=== PATIENT | female | born 1945 | race American Indian/Alaskan Native ===

== ENCOUNTER 2022-05-17 12:15 | Emergency (ER) | payer MEDICARE ==
[2022-05-17] MEDS ORDERED: ASPIRIN 325 MG TAB PO ONE (12:28)
--- NOTE | 2022-05-17 13:21 | XRay Report ---
XR chest routine 2V INDICATION / CLINICAL INFORMATION: chest pain. COMPARISON: None available. FINDINGS: SUPPORT DEVICES: None. HEART /PULMONARY VASCULATURE: Sternotomy changes. Cardiac size is enlarged. No significant ulnar vasc ulature congestion. LUNGS / PLEURA: No significant pulmonary or pleural abnormality. No pneumothorax. ADDITIONAL FINDINGS: No significant additional findings. IMPRESSION: 1. No acute findings. Signer Name: Damian Rosales MD Signed: 05/17/2022 1:16 PM Workstation Name: [id number]
[2022-05-17 14:09] LABS: Basophils % (Auto) 0.6 % (0.0-1.8); Eosinophils # (Auto) 0.1 K/mm3 (0.0-0.4); Eosinophils % (Auto) 1.4 % (0.0-4.3); Hematocrit 37.4 % (30.3-42.9); Hemoglobin 11.8 gm/dl (10.1-14.3); Lymphocytes # (Auto) 2.6 K/mm3 (1.2-5.4); Lymphocytes % (Auto) 36.5 % (13.4-35.0); Mean Corpuscular HGB Conc 32 % (30-34); Mean Corpuscular Volume 77 fl (79-97); Monocytes # (Auto) 0.5 K/mm3 (0.0-0.8); Monocytes % (Auto) 6.8 % (0.0-7.3); Platelet Count 222 K/mm3 (140-440); Red Blood Count 4.87 M/mm3 (3.65-5.03)
--- NOTE | 2022-05-17 14:14 | Electrocardiograph Report ---
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
[2022-05-17 14:40] LABS: Alanine Aminotransferase 17 units/L (7-56); BUN/Creatinine Ratio 24; Blood Urea Nitrogen 22 mg/dL (7-17); Hemolysis Index 2
[2022-05-17] MEDS ORDERED: ALUM-MAG HYDROXIDE-SIMETHICONE 200-200-20MG/5ML ORAL LIQD 30 ML PO ONE (15:51)
--- NOTE | 2022-05-17 17:00 | Emergency Department Report ---
ED General Adult HPI - General Chief complaint: Chest Pain Stated complaint: CHEST PAIN/SOB PUI?: No Time Seen by Provider: 05/17/22 14:04 Source: patient Mode of arrival: Ambulatory Limitations: No Limitations - History of Present Illness Initial comments: 77-year-old obese female with multiple medical comorbidities including coronary artery disease, status post CABG (patient says she does not recall the year or date) presents for evaluation of chest pain. Patient reports 2 weeks of persistent daily burning left-sided chest pain. She states "it feels burning like his acid reflux." Pain does not radiate. It worsens with some p.o. intake. She is trying to take Gas-X at home but states it is not improved. No shortness of breath or difficulty breathing. No dizziness or lightheadedness no weakness. Pain currently 10 out of 10 Patient reports she was seen by her primary care doctor 1 day ago and she states "he did nothing for me." -: Gradual, week(s) (2) Radiation: non-radiation Severity scale (0 -10): 8 Quality: other Consistency: other Worsens with: eating Associated Symptoms: denies other symptoms Treatments Prior to Arrival: none - Related Data Home Medications Medication Instructions Recorded Confirmed Last Taken Aspirin EC 81 mg PO DAILY 04/01/16 05/17/22 1 Day Ago ~05/16/22 AtorvaSTATin 20 mg PO QHS 04/01/16 05/17/22 1 Day Ago ~05/16/22 Glimepiride 2 mg PO DAILY 04/01/16 05/17/22 1 Day Ago ~05/16/22 ISOSORBIDE MONOnitrate 60 mg PO DAILY 04/01/16 05/17/22 1 Day Ago ~05/16/22 Metformin HCl 500 mg PO BID 04/01/16 05/17/22 1 Day Ago ~05/16/22 Nitroglycerin [Nitrostat] 0.4 mg PO DAILY 04/01/16 05/17/22 1 Day Ago ~05/16/22 Triamterene/Hydrochlorothiazid 37.5 mg PO QAM 04/01/16 05/17/22 1 Day Ago [Triamterene-Hctz 37.5-25 mg Tb] ~05/16/22 Vitamin B12 5,000 mcg PO DAILY 04/01/16 05/17/22 1 Day Ago ~05/16/22 carvediloL NICU (1.67 MG/ML) 25 mg PO BID 04/01/16 05/17/22 1 Day Ago [Coreg NICU dilution] ~05/16/22 hydrALAZINE 100 mg PO TID 04/01/16 05/17/22 1 Day Ago ~05/16/22 lisinopriL [Lisinopril] 40 mg PO BID 04/01/16 05/17/22 1 Day Ago ~05/16/22 Torsemide [Soaanz] 20 mg PO 05/17/22 1 Day Ago ~05/16/22 paricalcitoL [Paricalcitol] 1 mcg PO 05/17/22 1 Day Ago ~05/16/22 Previous Rx's Medication Instructions Recorded Last Taken Type Famotidine [Acid Controller] 20 mg PO DAILY #30 05/17/22 Unknown Rx Mag Hydrox/Aluminum Hyd/Simeth 148 ml PO BID #500 ml 05/17/22 Unknown Rx [Maalox Advanced Suspension] Allergies Allergy/AdvReac Type Severity Reaction Status Date / Time No Known Allergies Allergy Unverified 04/01/16 07:24 ED Review of Systems ROS: Stated complaint: CHEST PAIN/SOB Other details as noted in HPI Comment: All other systems reviewed and negative Constitutional: no symptoms reported Eyes: as per HPI ENT: as per HPI Respiratory: no symptoms reported Cardiovascular: chest pain Endocrine: no symptoms reported Gastrointestinal: as per HPI Skin: as per HPI Neurological: as per HPI ED Past Medical Hx - Past Medical History Hx Hypertension: Yes Hx Congestive Heart Failure: Yes Hx Diabetes: Yes Hx GERD: Yes Hx Arthritis: Yes - Social History Smoking Status: Never Smoker Substance Use Type: None - Medications Home Medications: Home Medications Medication Instructions Recorded Confirmed Last Taken Type Aspirin EC 81 mg PO DAILY 04/01/16 05/17/22 1 Day Ago History ~05/16/22 AtorvaSTATin 20 mg PO QHS 04/01/16 05/17/22 1 Day Ago History ~05/16/22 Glimepiride 2 mg PO DAILY 04/01/16 05/17/22 1 Day Ago History ~05/16/22 ISOSORBIDE MONOnitrate 60 mg PO DAILY 04/01/16 05/17/22 1 Day Ago History ~05/16/22 Metformin HCl 500 mg PO BID 04/01/16 05/17/22 1 Day Ago History ~05/16/22 Nitroglycerin [Nitrostat] 0.4 mg PO DAILY 04/01/16 05/17/22 1 Day Ago History ~05/16/22 Triamterene/Hydrochlorothiazid 37.5 mg PO QAM 04/01/16 05/17/22 1 Day Ago History [Triamterene-Hctz 37.5-25 mg Tb] ~05/16/22 Vitamin B12 5,000 mcg PO DAILY 04/01/16 05/17/22 1 Day Ago History ~05/16/22 carvediloL NICU (1.67 MG/ML) 25 mg PO BID 04/01/16 05/17/22 1 Day Ago History [Coreg NICU dilution] ~05/16/22 hydrALAZINE 100 mg PO TID 04/01/16 05/17/22 1 Day Ago History ~05/16/22 lisinopriL [Lisinopril] 40 mg PO BID 04/01/16 05/17/22 1 Day Ago History ~05/16/22 Famotidine [Acid Controller] 20 mg PO DAILY #30 05/17/22 Unknown Rx Mag Hydrox/Aluminum Hyd/Simeth 148 ml PO BID #500 ml 05/17/22 Unknown Rx [Maalox Advanced Suspension] Torsemide [Soaanz] 20 mg PO 05/17/22 1 Day Ago History ~05/16/22 paricalcitoL [Paricalcitol] 1 mcg PO 05/17/22 1 Day Ago History ~05/16/22 ED Physical Exam - General Limitations: No Limitations General appearance: alert, in no apparent distress - Head Head exam: Present: atraumatic, normocephalic, normal inspection - Eye Eye exam: Present: normal appearance, PERRL, EOMI Pupils: Present: normal accommodation - Neck Neck exam: Present: normal inspection, full ROM - Respiratory Respiratory exam: Present: normal lung sounds bilaterally - Cardiovascular Cardiovascular Exam: Present: regular rate, normal rhythm, normal heart sounds, other (Chest wall is nontender to palpation). Absent: bradycardia, tachycardia, irregular rhythm, systolic murmur, diastolic murmur, rubs, gallop, clicks, JVD, S3, S4 - GI/Abdominal GI/Abdominal exam: Present: soft, normal bowel sounds. Absent: distended, tenderness, guarding, rebound, rigid, diminished bowel sounds, hyperactive bowel sounds, hypoactive bowel sounds, organomegaly, mass, bruit - Extremities Exam Extremities exam: Present: normal inspection, full ROM, normal capillary refill. Absent: tenderness, pedal edema, joint swelling, calf tenderness, other - Back Exam Back exam: Present: normal inspection, full ROM - Neurological Exam Neurological exam: Present: alert, CN II-XII intact, normal gait, motor sensory deficit, reflexes normal - Psychiatric Psychiatric exam: Present: normal affect, normal mood - Skin Skin exam: Present: warm, dry, intact, normal color ED Course Vital Signs 05/17/22 05/17/22 05/17/22 12:26 14:15 14:31 Temperature 98.1 F Pulse Rate 60 56 L 55 L Respiratory 22 17 24 Rate Blood Pressure 130/84 130/84 Blood Pressure 214/98 [Left] O2 Sat by Pulse 97 98 98 Oximetry 05/17/22 05/17/22 05/17/22 14:37 14:45 15:01 Temperature Pulse Rate 55 L 54 L Respiratory 18 18 22 Rate Blood Pressure 130/84 130/84 Blood Pressure [Left] O2 Sat by Pulse 96 98 98 Oximetry 05/17/22 05/17/22 05/17/22 15:15 15:31 15:45 Temperature Pulse Rate 56 L 52 L 60 Respiratory 16 22 17 Rate Blood Pressure 130/84 130/84 130/84 Blood Pressure [Left] O2 Sat by Pulse 98 98 99 Oximetry 05/17/22 05/17/22 05/17/22 16:01 16:15 16:31 Temperature Pulse Rate 56 L 56 L 54 L Respiratory 12 19 12 Rate Blood Pressure 199/79 199/79 199/79 Blood Pressure [Left] O2 Sat by Pulse 97 99 99 Oximetry 05/17/22 05/17/22 05/17/22 16:45 17:01 17:15 Temperature Pulse Rate 54 L 54 L 55 L Respiratory 19 19 12 Rate Blood Pressure 199/79 199/89 199/89 Blood Pressure [Left] O2 Sat by Pulse 97 97 96 Oximetry 05/17/22 05/17/22 05/17/22 17:31 17:45 18:01 Temperature Pulse Rate 57 L 57 L 56 L Respiratory 21 21 18 Rate Blood Pressure 199/89 181/79 161/68 Blood Pressure [Left] O2 Sat by Pulse 96 97 96 Oximetry 05/17/22 05/17/22 05/17/22 18:15 18:31 18:45 Temperature Pulse Rate 56 L 56 L 53 L Respiratory 21 16 15 Rate Blood Pressure 161/68 164/72 164/72 Blood Pressure [Left] O2 Sat by Pulse 97 97 98 Oximetry - Reevaluation(s) Reevaluation #1: 05/17/22 19:12 Patient reassessed. She denies any active or worsening or evolving chest pain. She says she believes the Maalox helped her symptoms. Pain 0 out of 10. ED Medical Decision Making - Lab Data Result diagrams: 05/17/22 12:49 05/17/22 12:49 - EKG Data -: EKG Interpreted by Me EKG shows normal: sinus rhythm Rate: normal - EKG Data Interpretation: no acute changes, normal EKG - Radiology Data Radiology results: report reviewed - Medical Decision Making 's 77-year-old obese female with multiple medical comorbidities brought in for evaluation of 2 weeks of chest pain which she states is burning in nature. Symptoms per her report worsen primarily with certain p.o. intake. There are no alleviators. She denies any other symptoms. Vitals are stable. EKG grossly unremarkable. Serial cardiac enzymes unremarkable as well. Chest x-ray demonstrates no acute pathology. Given patient's age as well as underlying cardiac history, I telephoned her bilingual interpreter, Dr. Almaguer. Return call was received from Dr. Christian. See patient's electronic health record concerning my direct discussion with him. He has arranged for the patient to be followed up and seen by in 1 business day, which is Friday, May 20, 2022. Overall the patient is extremely well-appearing. Thank you her symptoms resolved after being given Maalox as well as famotidine here. She underwent serial abdominal examinations by me and per my clinical assessment her abdomen is soft nondistended nontender without guarding or rebound tenderness. Doubtful any acute life-threatening intra-abdominal process at this time necessitating further diagnostic imaging or other work-up at this time. Reports he feels well and wants to go home. Patient will be discharged. Prior to discharge she was given strict written and verbal return precautions. Patient verbalized understanding and agreement the plan of care. Critical care attestation.: If time is entered above; I have spent that time in minutes in the direct care of this critically ill patient, excluding procedure time. ED Disposition Clinical Impression: Chest pain Disposition: HOME / SELF CARE / HOMELESS Is pt being admited?: No Does the pt Need Aspirin: No Condition: Stable Instructions: Nonspecific Chest Pain, Adult Additional Instructions: Your laboratory work, electrocardiogram, and x-ray are normal today. The cause of your chest pain is unclear. Take Maalox as needed for any symptoms you believe are due to acid reflux. You may also take famotidine, which is also called Pepcid, 1 tablet by mouth daily. See , on Friday, May 20, 2022, for reassessment and further management. This is very important. Please observe your symptoms very carefully. Return to the nearest emergency department as soon as possible if you develop persistent chest pain, any difficulty breathing or shortness of breath, vomiting, inability tolerate liquids or solids, dizziness or lightheadedness, or if any other new worrisome symptoms develop. Prescriptions: Famotidine [Acid Controller] 20 mg PO DAILY #30 Mag Hydrox/Aluminum Hyd/Simeth [Maalox Advanced Suspension] 148 ml PO BID #500 ml
[2022-05-17] MEDS: KETOROLAC 30 MG/1 ML INJ IV ONE ×2 (17:26→17:47)
[2022-05-17] MEDS: FAMOTIDINE 20 MG/2 ML INJ IV ONE ×2 (17:26→17:47)
[2022-05-17 18:55] VITALS: BP 164/72
== END 2022-05-17 20:00 | disposition home or self-care (01) ==
LOC: ED 12:15
DX: R07.9 Chest pain, unspecified (principal); I11.0 Hypertensive heart disease with heart failure; I50.9 Heart failure, unspecified; E11.9 Type 2 diabetes mellitus without complications; K21.9 Gastro-esophageal reflux disease without esophagitis; M19.90 Unspecified osteoarthritis, unspecified site; Z79.899 Other long term (current) drug therapy
CPT/HCPCS: 36415; 71046; 80053; 83690; 84484; 85025; 93005; 96374; 96375; 99284; J1885; J3490